=== PATIENT | female | born 1940 | race Caucasian/White ===

== ENCOUNTER 2017-04-05 22:51 | Emergency (ER) | payer MEDICARE ==
[~2017-04-05] VITALS: Ht 165.1 cm; Wt 78.0 kg
[~2017-04-05 22:51] MED LIST: ASPIRIN 81MG TA81 MG PO; ASPIRIN81 MG PO; B-121000 MCG SL; B12 INJ.,1000 MCG/M IM; BRILINTA90 M1 PO; BYSTOLIC5 MG PO; CARAFATE1 GM PO; CARVEDILOL6.25 MG PO; DILTIAZEM ER 1120 MG PO; HYDROCODONE-APA1 TA1 PO; LIPITOR40 MG PO; LISINOPRIL2.5 MG PO; LORATADINE 10MG10 M1 PO; METFORMIN500 MG PO; NEXIUM40 MG PO; NITROGLYCERIN0.4 M1 SL; NITROSTAT 0.4M0.4 MG SL; PANTOPRAZOLE SO40 M1 PO; PANTOPRAZOLE SO40 MG PO; REGLAN 10 MG TA10 MG PO; VITAMIN D50000 I1 PO
[2017-04-05] MEDS ORDERED: CLOPIDOGREL75 M2 PO (23:02)
[2017-04-05] MEDS ORDERED: SOTALOL HCL80 MG PO (23:02)
[2017-04-05] MEDS ORDERED: DICLOFENAC SODI50 M1 PO (23:03)
[2017-04-05] MEDS ORDERED: CALTRATE 600 +1 EACH PO (23:04)
--- NOTE | 2017-04-05 23:13 | Emergency Room Report ---
History of Present Illness Time Seen by [email or web address] Presenting Problem in Triage Pt arrived:Ambulance Stretcher Presenting Problem:PT REPORTS INCREASING PAIN RIGHT KNEE SINCE EARLIER TODAY. 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 PT REPORTS BURNING PAIN AND HEARING RIGHT KNEE "POP" A COUPLE OF TIMES. REPORTS NOT BEING ABOUT TO WALK. Onset of symptoms date/time:04/05/17 or onset unknown for: Treatment Prior to Arrival: CLOSING SUPERVISOR Provided by: Sepsis Risk Assessment: Temp: 98.0 B/P: 146/78 MAP: 100 Pulse: 63 Resp: 18 Recent fever? N Clinical Suspician of Infection? N Mental Status: 1 - Regular (Normal Baseline) Sepsis Risk:Low Sepsis Risk Have you (or family members/close friends) recently traveled outside the [place]? N If Yes, where/when: Have you had exposure to infectious disease within the past month? N TB? Other? Specify: Source patient, RN notes reviewed, family, old records Exam Limitations no limitations Comment pt with known knee pain and djd who did alot of use yesterday and today with popping and now pain with mov and wt bearing Cardiac Chest Pain Chest pain indicative of cardiac No Timing/Duration this evening Severity moderate ALLERGIES Coded Allergies: CHERRIES (DRUG) (From CHERRIES (FOOD/DRUG)) (Mild, 06/29/15) [place] (Mild, 06/29/15) oats (Mild, 06/29/15) pepper (Mild, BLACK PEPPER 06/29/15) turkey (Mild, 06/29/15) Codfish (06/29/15) fexofenadine (06/29/15) Uncoded Allergies: VANILLA (Mild, 06/24/15) MARY (06/26/15) Home Medications Reported Medications Atorvastatin Calcium (Atorvastatin) 20 MG PO QHS Nitroglycerin 0.4 MG SL PRN PRN CHEST PAIN Cyanocobalamin (B-12) 1,000 MCG SL DAILY Aspirin 81 MG PO DAILY Carvedilol (Carvedilol 6.25MG) 6.25 MG PO BID Sotalol Hcl (Sotalol) 80 MG PO BID #30 CLOPIDOGREL BISULFATE (Clopidogrel) 75 MG PO DAILY #90 Diclofenac Sodium 50 MG PO [id number] PRN PAIN #60 Calcium Carbonate/Vitamin D3 (Caltrate 600 + D Soft Chew Tab) 1 EACH PO BID History Medical History General CAD? Yes Angina: No HI: No Hypertension? Yes Hyperlipidemia? No CHF? No DVT? No PE? No COPD? No Asthma? No Anemia? No GERD? No Gastric ulcers? No GI Bleed? No Hernia? No Thyroid Problems? No Hypothyroidism? No CVA? No Seizures? No Diabetes? No Insulin Dependent: No Insulin Pump: No Home FSBS? No Renal Insuffiency? No End Stage Renal Disease? No UTI? No Stones? No BPH? No GB Disease: No Nephritic Syndrome? No Asplenia? No Hepatitis? No Sickle Cell Disease? No Arthritis? No Migraines? No Cataracts? No Glaucoma? No MRSA? No HIV? No TB? No Anxiety? No Depression? No Cancer? Yes Site: BREAST More? No Immunization Hx Ped.Immunizations UTD Yes DT/Tetanus 1-4 Years Ago Flu 2015-16FSN Pneumonia Received In Past Surgical Hx Previous Surgery?Y Hysterect Tonsils LUMPECTOMY R BREAST 19 LYMPH NODES R ARM MOUTH SURGERY X 2 Tubal Ligation 5 CARDIAC STENTS PLACED Family History Family Hx Diabetes Yes CAD Yes Hypertension Yes Hyperlipidemia Yes Cancer Yes TB No Social History Smoking Hx Smoker: Never Smoker Tobacco: No Are you/the child exposed to second-hand smoke: No Alcohol Alcohol: No Drugs none Review of Systems All Other Systems Reviewed and Negative Constitutional denies fever Eyes denies drainage ENT denies: ear discharge, epistaxis, throat pain. Respiratory denies cough, denies shortness of breath, denies wheezing Cardiovascular denies chest pain, denies palpitations, denies syncope Gastrointestinal denies abdominal pain, denies diarrhea, denies vomiting Genitourinary denies: dysuria, frequency, hesitancy, hematuria. Musculoskeletal see HPI, joint pain, joint swelling Skin denies rash Psychiatric/Neurological denies headache, denies seizure Physical Exam Vital Signs Vital Signs Date Time Temp Pulse Resp B/P Pulse O2 O2 Flow FiO2 Ox Delivery Rate 04/05 2354 18 04/05 2253 98.0 63 18 146/78 97 - WBC >12,000 or <4,000 or 10% bands? 2 or more SIRS Criteria Met? B/P:146/78 MAP:100 Creatinine >2.0? UA output<0.5ml/kg/hr for 2 hrs? Platelet count >100,000? Lactate >2.0mmol/1? INR >1.2 or PTT > than 60 sec? Evidence of Organ Dysfunction? Provider documented clinical suspician of infection? N Sepsis Criteria Count: 0 Sepsis Risk: Low Sepsis Risk General Appearance no apparent distress Eye Exam - bilateral eye PERRL, bilateral eye EOMI Ear, Nose, Throat normal ENT inspection Neck supple Respiratory Status No: respiratory distress. 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 No Results/Orders Current Medication Orders Sig/Sheeba Start time Last Medication Dose Route Stop Time Status Admin Dexamethasone Sodium 0 .STK-MED ONE 04/05 2349 DC Phosphate .ROUTE Dexamethasone Sodium 8 MG ONCE ONE 04/05 2345 DC 04/05 Phosphate IM 04/05 2346 2354 Ketorolac 60 MG ONCE ONE 04/05 2345 DC 04/05 Tromethamine IV 04/05 2346 2354 Ketorolac 0 .STK-MED ONE 04/05 2345 DC Tromethamine .ROUTE Orders Procedure Date/time Status KNEE-3 VIEWS-RT 04/05 2307 Active XRAY/CT/US XRAY/CT/US XRAY knee XR interpretation by reviewed by me Xray Results no fracture seen, abnormal Departure Departure Time of Disposition 2346 Disposition DC Home or Self Care(routine) Clinical Impression Primary Impression: Knee pain, right Qualifiers: Chronicity: acute Qualified Code: M25.561 - Pain in right knee Secondary Impressions: Arthritis Condition STABLE Referrals Peter Khan MD (Family) discussed with dr khan Patient Instructions DI for Knee Pain Additional Instructions ice and use meds and call dr khan in am Discharge Counseling Counseled pt/family regarding diagnosis, test results, medications/RX, follow up needs Prescriptions Current Visit Scripts Prednisone (Prednisone 20MG) 20 MG PO BID #10 TAB ED Critical Care Critical Care No at 0006
--- OUTSIDE RECORDS SUMMARY | 2017-04-05 23:16 | External Medical Summary Rpt | CCD ---
Author Author [employer] Organization [employer] Address Unknown Phone Unavailable Purpose Continuity of Care Document - through 2016
--- OUTSIDE RECORDS SUMMARY | 2017-04-05 23:16 | External Medical Summary Rpt | CCD ---
Author Author , GARRICK MCCAULEY Address Unknown Phone [email or web address] Immunization Name Date Rout CVX Reac Dose Comm Prov Is Faci e tion ent ider Refu lity Give sed n Infl 09-1 Intr 0.5 Hist PD20 No PD20 uenz 8-20 amus mL oric 255 255 a 17 cula al Quad r Info rmat W/Pr ion es - Sour ce Unsp ecif ied PCV1 04-1 Intr 133 0.5 Hist PD20 No PD20 3 4-20 amus mL oric 255 255 17 cula al r Info rmat ion - Sour ce Unsp ecif ied
--- OUTSIDE RECORDS SUMMARY | 2017-04-05 23:16 | External Medical Summary Rpt | CCD ---
Author Author , GARRICK MCCAULEY Address Unknown Phone [email or web address] Care Team Providers Care Support Clerk Name Role Phone [facility] Unavailable Unavailable Hospital, [facility] Juice Schultz MD, Unavailable Unavailable Juice Schultz MD Purpose Continuity of Care Document - 09-12-2012 through 2016 Problems Code Diagnosis DOS Provider Status 427.89 Supraventri [facility] 785.1 Palpitation [facility] M85.89 OTH DISRD OF BONE DENSITY AND STRUCTURE, MULTIPLE SITES Allergies, Adverse Reactions, Alerts Type Allergy to substance Drug Allergy Food Allergy Adverse Reaction to Substance Substance Reaction Severity COD FISH AND MARY Unknown Unknown MULTIPLE FOOD "GROWTH IN MOUTH" Unknown ALLERGIES CHERRIES (DRUG) Unknown Unknown TURKEY (DRUG) Unknown Unknown Acetaminophen UNKNOWN REACTION Unknown Black Pepper Unknown Unknown Lee Unknown Unknown OATS (FOOD) UNSURE Unknown TURKEY (FOOD) Unknown Unknown White Fish Unknown Unknown Medications Na ND Rx Da Fi Fi Am Da Di Ph RX Ph St me C No te ll ll ou ys ag ar # ys at rm s nt no ma ic us Or Da si cy ia de te s n re d As 63 05 1 No pi 73 -1 ri 90 1- Lo n 02 20 ng EC 30 13 er 1 32 Ac 5M ti G ve Ta bl et Di 62 05 1 No lt 58 -1 ia 40 1- Lo ze 97 20 ng m 40 13 er ER 1 Ac 12 ti 0M ve G Ca ps ul e MA 00 05 0 No GN 51 -1 ES 72 0- Lo IU 60 20 ng M 22 13 er DUFF 5 LF Ac AT ti E ve 50 % AL As 63 05 0 No pi 73 -1 ri 90 0- Lo n 02 20 ng EC 30 13 er 1 32 Ac 5M ti G ve Ta bl et DI 51 05 0 No LT 07 -1 IA 90 0- Lo ZE 74 20 ng M 52 13 er 30 0 Ac MG ti ve TA BL ET Ib 62 05 2 No up 58 -1 ro 40 0- Lo fe 74 20 ng n 60 13 er 40 1 0M Ac G ti Ta ve bl et Me 68 05 2 No to 08 -1 cl 40 0- Lo op 09 20 ng ra 10 13 er mi 1 de Ac ti 10 ve MG Ta bl et PA 51 05 2 No NT 07 -1 OP 90 0- Lo RA 05 20 ng ZO 12 13 er LE 0 Ac SO ti D ve DR 40 MG TA B SO 00 05 1 No DI 40 -1 UM 97 0- Lo 98 20 ng CH 30 13 er LO 9 RI Ac DE ti ve 0. 9% SO NINA TI ON DI 00 05 0 No LT 40 -0 IA 94 9- Lo ZE 35 20 ng M 00 13 er HC 3 L Ac 10 ti 0 ve MG AL So 00 05 0 No di 07 -0 um 47 9- Lo 10 20 ng Ch 12 13 er lo 3 ri Ac de ti ve 0. 9% 10 0M L Ad v SO 00 05 1 No DI 40 -0 UM 97 9- Lo 98 20 ng CH 30 13 er LO 9 RI Ac DE ti ve 0. 9% SO NINA TI ON Ib 62 05 0 No up 58 -0 ro 40 9- Lo fe 74 20 ng n 60 13 er 40 1 0M Ac G ti Ta ve bl et As 63 05 0 No pi 73 -0 ri 90 9- Lo n 02 20 ng EC 30 13 er 1 32 Ac 5M ti G ve Ta bl et Ib 62 05 1 No up 58 -0 ro 40 9- Lo fe 74 20 ng n 60 13 er 40 1 0M Ac G ti Ta ve bl et Di 55 05 0 No lt 39 -0 ia 00 9- Lo ze 56 20 ng m 60 13 er 25 5 MG Ac /5 ti ML ve Vi al AT 51 05 0 No EN 07 -0 OL 90 9- Lo OL 75 20 ng 92 13 er 25 0 Ac MG ti ve TA BL ET Sa 63 05 1 No li 80 -0 ne 70 8- Lo 10 20 ng Fl 07 13 er us 5 h Ac 10 ti ML ve Sy ri ng e SO 00 05 1 No DI 40 -0 UM 97 8- Lo 98 20 ng CH 30 13 er LO 9 RI Ac DE ti ve 0. 9% SO NINA TI ON Vital Signs 09-16-2012 13:02 Name Value Interpretat Reference Comment ion Range Body 97.5 [degF] Temperature BP 80 mm[Hg] Diastolic BP Systolic 103 mm[Hg] Heart 79 /min Rate/Pulse Respiratory 20 /min Rate 09-16-2012 12:00 Name Value Interpretat Reference Comment ion Range O2% 97 % 09-13-2012 00:01 Name Value Interpretat Reference Comment ion Range Height 165.10 cm Weight 78.926 kg Measured 09-12-2012 21:49 Name Value Interpretat Reference Comment ion Range Body 99.4 [degF] Temperature BP 61 mm[Hg] Diastolic BP Systolic 152 mm[Hg] Heart 66 /min Rate/Pulse O2% 98 % Respiratory 18 /min Rate Weight 00 [oz_av] Measured Results Labs Lab Lab Date Result Refere Interp Status Commen Order Detail nces retati t Range on Magnesium SerPl-mCnc (09-14-2012 11:10) Magnesi 1.8 1.4-2.2 complet um 013 mg/dL ed SerPl-m 11:10 Cnc COMPREHENSIVE METABOLIC PANEL (09-12-2012 22:05) Glucose 105 74-106 complet 013 mg/dL ed Bld-mCn 22:05 c BUN 16 7-18 complet Bld-mCn 013 mg/dL ed c 22:05 Creat 1.3 0.6-1.0 complet SerPl-m 013 mg/dL ed Cnc 22:05 ESTIMAT 48 50-200 complet ED 013 ML/MIN ed CREATIN 22:05 INE CLEARAN CE GFR 40 59- complet (ESTIMA 013 ML/MIN ed OVIDIO) 22:05 Sodium 141 136-145 complet SerPl-s 013 mmoL/L ed Cnc 22:05 Potassi 4.0 3.5-5.1 complet um 013 mmoL/L ed SerPl-s 22:05 Cnc Chlorid 105 98-107 complet e 013 mmoL/L ed SerPl-s 22:05 Cnc CO2 30 21.0-32 complet SerPl-s 013 mmoL/L .0 ed Cnc 22:05 Calcium 9.1 8.5-10. complet 013 mg/dL 1 ed SerPl-m 22:05 Cnc Prot 08-2 6.9 6.4-8.2 complet SerPl-m 013 gm/dL ed Cnc 22:05 Albumin 08-2 4.0 3.4-5.0 complet 013 gm/dL ed SerPl-m 22:05 Cnc Globuli 09-12- 2.9 1.3-3.2 complet n 013 gm/dL ed Ser-mCn 22:05 c Albumin 09-12-2 1.4 UNK 1.1-1.8 complet /Glob 013 ed SerPl-m 22:05 Rto Bilirub 09-12- 0.2 0.2-1.0 complet 013 mg/dL ed SerPl-m 22:05 Cnc AST 09-12- 17 U/L 15-37 complet SerPl-c 013 ed Cnc 22:05 ALT 52 U/L 30-65 complet SerPl-c 013 ed Cnc 22:05 ALP 192 U/L 50-136 complet SerPl-c 013 ed Cnc 22:05 LIPID PROFILE (09-12-2012 22:05) Cholest 08-2 182 Less complet 013 mg/dL than ed SerPl-m 22:05 200 Cnc HDLc 09-12-2 41.0 40-60 complet SerPl-m 013 MG/DL ed Cnc 22:05 LDLc 08-2 84.6 0-130 complet SerPl 013 mg/dL ed Calc-mC 22:05 nc VLDL 09-12-2 56.4 0-40 complet CHOLEST 013 UNK ed JAMMIE 22:05 Trigl 09-12- 282 30-200 complet SerPl-m 013 mg/dL ed Cnc 22:05 CBC with AUTO DIFF (09-12-2012 22:05) WBC # 05-08-2 7.4 4.8-10. complet Bld 013 K/MM3 8 ed Auto 22:05 RBC # 08-2 4.35 4.2-5.4 complet Bld 013 M/mm3 ed Auto 22:05 Hgb 09-12- 14.7 12.2-16 complet Bld-mCn 013 g/dL .2 ed c 22:05 Hct Fr 45.0 % 37.0-47 complet Bld 013 .0 ed 22:05 MCV RBC -08-2 103.4 82.2-97 complet 013 fl .8 ed 22:05 MCH RBC 05-08-2 33.8 pg 27-31.2 complet Qn 013 ed Auto 22:05 MEAN 05-08-2 32.6 31.8-35 complet CORPUSC 013 g/dl .4 ed ULAR 22:05 HGB CONC RDW RBC -08-2 13.3 % 11.5-17 complet Auto 013 .5 ed 22:05 Platele 05-08-2 302 142-424 complet t Bld 013 K/mm3 ed Ql 22:05 Manual MEAN -08-2 7.8 fl 7.4-10. complet PLATELE 013 4 ed T 22:05 VOLUME Granulo -08-2 48.1 % 37.0-80 complet cytes 013 .0 ed Fr Bld 22:05 Auto LYMPH % 05-08-2 41.9 % 10-50.0 complet 013 ed 22:05 Monocyt 05-08-2 6.4 % 1.7-9.3 complet es Fr 013 ed Bld 22:05 Auto Eosinop 05-08-2 2.9 % 0.1-12. complet hil Fr 013 0 ed Bld 22:05 Auto Basophi 05-08-2 0.6 % 0.1-2.0 complet ls Fr 013 ed Bld 22:05 Auto Granulo 05-08-2 3.6 1.8-7.8 complet cytes # 013 K/mm3 ed Bld 22:05 Auto Lymphoc 05-08-2 3.1 0.7-4.5 complet ytes Fr 013 K/mm3 ed Bld 22:05 Auto Monocyt 05-08-2 0.5 0.1-1.0 complet es # 013 K/mm3 ed Bld 22:05 Auto Eosinop 05-08-2 0.2 0.0-0.4 complet hil # 013 K/mm3 ed Bld 22:05 Auto Basophi 05-08-2 0.1 0-0.2 complet ls # 013 K/MM3 ed Bld 22:05 Auto Encounters Encounter Start End Date Code Location Performer Type Date Inpatient IMP Nasim Betancur MD ([place]) 3 22:05 3 13:05 [facility]
--- OUTSIDE RECORDS SUMMARY | 2017-04-05 23:16 | External Medical Summary Rpt | CCD ---
Author Author , GARRICK MCCAULEY Address Unknown Phone [email or web address] Immunization Name Date Rout CVX Reac Dose [...]
--- OUTSIDE RECORDS SUMMARY | 2017-04-05 23:16 | External Medical Summary Rpt | CCD ---
Author Author , GARRICK MCCAULEY Address Unknown Phone [email or web address] Care Team Providers Care Dry Cure Worker Name Role Phone [facility] Unavailable Unavailable Hospital, [facility] Juice Schultz MD, Unavailable Unavailable Juice Schultz MD Purpose Continuity of Care Document - 09-12-2012 through 2016 Problems Code Diagnosis DOS Provider Status 427.89 Supraventri [facility] 785.1 Palpitation [facility] M85.89 OTH DISRD OF BONE DENSITY [...] Betancur MD ([place]) 3 22:05 3 13:05 [facility]
--- OUTSIDE RECORDS SUMMARY | 2017-04-05 23:16 | External Medical Summary Rpt ---
Author Author GARRICK Parra, GARRICK Parra Organization [employer] Address Unknown Phone Unavailable
[2017-04-06] MEDS ORDERED: PREDNISONE 20MG20 MG PO (00:06)
[2017-04-06 00:17] VITALS: BP 127/66
--- NOTE | 2017-04-06 05:31 | RADIOLOGY REPORT PS360 ---
KNEE-3 VIEWS-RT HISTORY: RIGHT KNEE PAIN ORDERING PHYSICIAN: Ro Coppola MD PATIENT AGE: 77 years COMPARISON: None FINDINGS: Mild osteoarthritic changes are present involving the medial compartment with moderate osteoarthritic changes at the patellofemoral joint. There is increased soft tissue density in the suprapatellar region suggesting knee joint effusion. There are generalized vascular calcifications. No fracture or dislocation. No lytic or blastic change IMPRESSION: Osteoarthritis with knee joint effusion
== END 2017-04-06 00:20 | disposition home or self-care (01) ==
LOC: ER 22:51
DX: M25.561 Pain in right knee (principal); M19.90 Unspecified osteoarthritis, unspecified site